=== PATIENT | male | born 2000 | race Asian ===

== ENCOUNTER 2025-05-11 06:10 | Day surgery (SDC) | payer OTHER ==
[2025-05-03 13:01] VITALS: BMI 34.0
[2025-05-11] MEDS ORDERED: Tranexamic Acid 1,000 MG/10 ML VIAL ONE (07:00)
[2025-05-11] MEDS ORDERED: Acetaminophen 500 MG TAB ONE (07:00)
[2025-05-11] MEDS ORDERED: PROPOFOL 20 ML ONE (07:29)
[2025-05-11] MEDS ORDERED: Ropivacaine 0.5% HCl/PF (150 MG/30 ML VIAL) ONE (08:00)
[2025-05-11] MEDS ORDERED: oxyCODONE 5 MG TAB PO PRN ×2 (08:26→08:27)
[2025-05-11] MEDS ORDERED: fentaNYL PF 100 MCG/2 ML SYRINGE ONE (08:26)
[2025-05-11] MEDS ORDERED: CEFAZOLIN 2 GM VIAL ONE (08:28)
[2025-05-11] MEDS ORDERED: Ondansetron PF 4 MG/2 ML Vial IVP PRN (08:30)
[2025-05-11] MEDS ORDERED: Ropivacaine 0.2% 550 ML 550 ML NERVE BLCK SCH (08:30)
[2025-05-11] MEDS ORDERED: Ketorolac Tromethamine 30 MG (1 mL) VIAL ONE (08:45)
[2025-05-11] MEDS ORDERED: Ondansetron PF 4 MG/2 ML Vial ONE (08:45)
[2025-05-11] MEDS ORDERED: Acetaminophen 500 MG TAB PO SCH (12:00)
[2025-05-11] MEDS ORDERED: Ketorolac Tromethamine 30 MG (1 mL) VIAL IVP SCH (12:00)
== END 2025-05-11 16:00 | disposition home or self-care (01) ==
LOC: SDC 06:10
PROVIDERS: ATTEND Student in an Organized Health Care Education/Training Program
PROC: 0MRN47Z Replacement of Right Knee Bursa and Ligament with Autologous Tissue Substitute, Percutaneous Endoscopic Approach (ICD-10-PCS; principal; 2025-05-11)
PROC: 3E0T3BZ Introduction of Anesthetic Agent into Peripheral Nerves and Plexi, Percutaneous Approach (ICD-10-PCS; principal; 2025-05-11)
PROC: 0SBC4ZZ Excision of Right Knee Joint, Percutaneous Endoscopic Approach (ICD-10-PCS; principal; 2025-05-11)
DX: S83.511A Sprain of anterior cruciate ligament of right knee, initial encounter (principal); S83.251A Bucket-handle tear of lateral meniscus, current injury, right knee, initial encounter; W03.XXXA Other fall on same level due to collision with another person, initial encounter; Y93.66 Activity, soccer
CPT/HCPCS: A4306; C1713; C1889; J0169; J0665; J1100; J1885; J2250; J2405; J2704; J2795; J3010; J3373